=== PATIENT | male | born 1975 | race Caucasian/White ===

== ENCOUNTER → 2018-05-05 | Outpatient (CLI) | payer BC ==
--- NOTE | 2018-05-05 15:26 | Diagnostic Imaging Report ---
Examination: MRI SPINE LUMBAR WITHOUT CONTRAST History: Low back pain radiating down the left lower extremity. Comparison studies: None Technique: Sagittal, coronal and axial T2 , sagittal T1 and STIR; axial spin density oblique. Findings: Number of lumbar vertebral bodies: Five. Alignment: Normal lordosis. No scoliosis. Soft tissues: No T2 hyperintense inflammatory changes. Posterior paraspinal soft tissues and muscles: No abnormality. Lower thoracic cord: Normal in signal and morphology. The tip of the conus is at T12-L1. Cauda equina: No masses. No arachnoiditis. Vertebrae: No fractures, infection or neoplasm. Degenerative changes: L1-L2: Mild bilateral facet arthropathy. No degenerative disc or canal or foraminal stenosis. L2-L3: Mild bilateral facet arthropathy. No degenerative disc or canal or foraminal stenosis. L3-L4: Left foraminal disc protrusion and mild bilateral facet arthropathy result in severe left neural foraminal narrowing with impingement of the exiting left L3 nerve root. No right foraminal or canal stenosis. L4-L5: Mild diffuse disc bulge and moderate bilateral facet arthropathy result in moderate right and mild left neural foraminal narrowing. No canal stenosis. L5-S1: No abnormalities. IMPRESSION: 1. Degenerative changes from L1-L2 through L4-L5 with severe left foraminal narrowing and impingement of the exiting left L3 nerve root due to a left foraminal disc protrusion at L3-L4. This could be the cause of patient's symptoms. 2. No canal stenosis. Signed by: Dr. Nidhi Denny M.D. on 05/05/2018 3:22 PM
== END ==
LOC: MRI 14:01
PROVIDERS: ATTEND Family Medicine
DX: M54.16 Radiculopathy, lumbar region (principal)
CPT/HCPCS: 72148

== ENCOUNTER → 2021-11-19 | Outpatient (CLI) | payer OTHER | LOC: MRI 07:37 | PROVIDERS: ATTEND Physical Medicine & Rehabilitation Pain Medicine | DX: M54.16 Radiculopathy, lumbar region (principal) | CPT/HCPCS: 72148 ==